=== PATIENT | female | born 1980 | race African-American/Black ===

== ENCOUNTER 2016-04-08 01:49 | Emergency (ER) | payer OTHER ==
[~2016-04-08] VITALS: Ht 152.4 cm; Wt 57.6 kg
--- NOTE | ~2016-04-08 | EKG ---
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
[~2016-04-08 01:49] MED LIST: ALEVE220 MG PO; AMOXICILLIN 50500 MG PO; APAP500 PO; COLACE100 MG PO; ESTRIOL100 GM MC; FLAGYL500 MG PO; FLEXERIL PO; HYDROCODONE-APA1 TA1 PO; IBUPROFEN 600600 M1 PO; IBUPROFEN 800800 MG PO; MIRALAX17 GM PO; NOHOMEMEDICATIONS; NORCO 5-325 TA1 EACH PO; PHENERGAN 25 MG25 M1 PO; ZOFRAN ODT4 MG PO; ZOFRAN ODT4 MG SUBLING
[2016-04-08 02:44] LABS: URINE BILIRUBIN NEGATIVE (Negative); URINE BLOOD NEGATIVE (Negative); URINE COLOR YELLOW; URINE GLUCOSE-RANDOM* NEGATIVE (Negative); URINE KETONES NEGATIVE (Negative); URINE LEUKOCYTES-REFLEX NEGATIVE (Negative); URINE PROTEIN (DIPSTICK) NEGATIVE (Negative); URINE UROBILINOGEN 0.2 E.U./dl (0.2-1.0)
[2016-04-08 02:48] LABS: BASOPHILS 0.8 % (0.0-2.0); EOSINOPHILS 0.2 % (0.0-3.0); HEMATOCRIT 41.1 % (37.0-47.0); HEMOGLOBIN 13.6 gm/dL (12.0-15.0); LYMPHOCYTES 17.7 % (24.0-44.0); MCH 26.4 pg (26.0-34.0); MONOCYTES 3.5 % (1.0-8.0); PLATELET COUNT 161 thou/uL (150-400); POLYS 77.8 % (36.0-66.0); RBC 5.14 mil/uL (4.20-5.00); RDW 18.2 % (10.5-14.5); WBC 6.4 thou/uL (4.0-11.0)
[2016-04-08 02:49] LABS: MANUAL DIFF NO
[2016-04-08 03:26] LABS: ANION GAP 11 mmol/L (7-16); BUN 11 mg/dL (7-18); CALCIUM 9.2 mg/dL (8.5-10.1); CHLORIDE 101 mmol/L (98-107); CO2 25 mmol/L (21-32); CREATININE 0.7 mg/dL (0.6-1.3); GLUCOSE 118 mg/dL (70-99); POTASSIUM 3.9 mmol/L (3.5-5.1); SODIUM 137 mmol/L (136-145)
[2016-04-08 03:33] LABS: ALKALINE PHOSPHATASE 76 U/L (46-116); SGOT 14 U/L (15-37); SGPT 22 U/L (30-65); TOTAL BILIRUBIN 0.7 mg/dL (<0.1-1.0)
[2016-04-08 03:34] LABS: ALBUMIN 4.3 g/dL (3.4-5.0); TOTAL PROTEIN 8.2 g/dL (6.4-8.2); TROPONIN-I < 0.04 ng/mL (<0.04-0.07)
[2016-04-08] MEDS ORDERED: ZOFRAN ODT8 MG PO (05:07)
[2016-04-08] MEDS ORDERED: TRAMADOL 50 MG50 MG PO (05:07)
[2016-04-08 05:35] VITALS: BP 138/76
== END 2016-04-08 05:35 | disposition home or self-care (01) ==
LOC: ER 01:49
PROVIDERS: Emergency Medicine
DX: K52.89 Other specified noninfective gastroenteritis and colitis (principal); Z88.6 Allergy status to analgesic agent; Z88.3 Allergy status to other anti-infective agents; F12.10 Cannabis abuse, uncomplicated

== ENCOUNTER 2017-01-15 08:32 | Emergency (ER) | payer OTHER ==
[~2017-01-15] VITALS: Ht 149.9 cm; Wt 57.6 kg
[~2017-01-15 08:32] MED LIST changes: +TRAMADOL 50 MG50 MG PO; +ZOFRAN ODT8 MG PO
[2017-01-15] MEDS ORDERED: ESTRADIOL 1 MG T1 M1 PO (09:00)
[2017-01-15] MEDS ORDERED: PHENERGAN 25 MG25 M1 PO (09:00)
[2017-01-15] MEDS ORDERED: ESTRACE0.5 MG PO (09:00)
[2017-01-15 09:08] LABS: URINE BILIRUBIN 1+ (Negative); URINE BLOOD TRACE (Negative); URINE COLOR YELLOW; URINE GLUCOSE-RANDOM* NEGATIVE (Negative); URINE KETONES 2+ (Negative); URINE LEUKOCYTES-REFLEX NEGATIVE (Negative); URINE PROTEIN (DIPSTICK) 1+ (Negative); URINE SPECIFIC GRAVITY >= 1.030 (1.003-1.035)
[2017-01-15 09:17] LABS: ABSOLUTE NEUTROPHILS 2.1 thou/uL (1.4-8.2); EOSINOPHILS 0.8 % (0.0-3.0); HEMOGLOBIN 15.4 gm/dL (12.0-15.0); LYMPHOCYTES 34.8 % (24.0-44.0); MCH 29.6 pg (26.0-34.0); MCHC 33.4 g/dL (28.0-37.0); MCV 88.5 fL (80.0-100.0); MONOCYTES 7.3 % (1.0-8.0); PLATELET COUNT 161 thou/uL (150-400); POLYS 56.1 % (36.0-66.0); WBC 3.8 thou/uL (4.0-11.0)
[2017-01-15 09:19] LABS: MANUAL DIFF NO
[2017-01-15 09:28] LABS: ICTOTEST (BILI CONFIRMATORY) Negative (Negative)
[2017-01-15 09:29] LABS: CASTS None Seen /LPF (None Seen); CRYSTALS None Seen /LPF (None Seen); SQUAMOUS 4-10 Moderate /LPF (0-3); URINE RBC 0-2 Rare /HPF (0-2)
[2017-01-15 09:30] LABS: URINE WBC-REFLEX None Seen /HPF (0-5)
[2017-01-15 09:30] LABS: CREATININE 0.9 mg/dL (0.6-1.0); POTASSIUM 3.4 mmol/L (3.5-5.1)
[2017-01-15 09:35] LABS: ALBUMIN 4.9 g/dL (3.4-5.0); TOTAL BILIRUBIN 1.8 mg/dL (<0.1-1.0); TOTAL PROTEIN 8.5 g/dL (6.4-8.2)
[2017-01-15] MEDS ORDERED: PEPCID20 MG PO (10:49)
[2017-01-15] MEDS ORDERED: PHENERGAN12.5 M2 RECTAL (10:49)
[2017-01-15 10:54] VITALS: BP 116/64
[2017-01-16] MEDS ORDERED: PEPCID20 MG PO (16:46)
[2017-01-16] MEDS ORDERED: ZOFRAN ODT4 MG PO (16:46)
== END 2017-01-15 11:04 | disposition home or self-care (01) ==
LOC: ER 08:32
PROVIDERS: Physician Assistant
DX: R10.32 Left lower quadrant pain (principal); Z98.890 Other specified postprocedural states; Z88.6 Allergy status to analgesic agent; Z88.2 Allergy status to sulfonamides

== ENCOUNTER 2018-08-26 09:05 | Emergency (ER) | payer OTHER ==
[~2018-08-26] VITALS: Ht 149.9 cm; Wt 54.4 kg
[~2018-08-26 09:05] MED LIST changes: +ESTRACE0.5 MG PO; +ESTRADIOL 1 MG T1 M1 PO; +PEPCID20 MG PO; +PHENERGAN12.5 M2 RECTAL
[2018-08-26 10:49] LABS: HEMATOCRIT 44.3 % (37.0-47.0); HEMOGLOBIN 15.1 gm/dL (12.0-15.0); MCH 29.5 pg (26.0-34.0); MCHC 34.1 g/dL (28.0-37.0); MCV 86.5 fL (80.0-100.0); PLATELET COUNT 164 thou/uL (150-400); RBC 5.12 mil/uL (4.20-5.00); RDW 12.7 % (10.5-14.5); WBC 2.9 thou/uL (4.0-11.0)
[2018-08-26 11:01] LABS: ANION GAP 11 mmol/L (7-16); BUN 12 mg/dL (7-18); CALCIUM 9.3 mg/dL (8.5-10.1); CHLORIDE 100 mmol/L (98-107); CO2 26 mmol/L (21-32); CREATININE 0.7 mg/dL (0.6-1.0); GLUCOSE 102 mg/dL (74-106); POTASSIUM 4.4 mmol/L (3.5-5.1)
[2018-08-26 11:04] LABS: SODIUM 137 mmol/L (136-145)
[2018-08-26 11:11] LABS: ALBUMIN 4.2 g/dL (3.4-5.0); SGOT 28 U/L (15-37); SGPT 29 U/L (30-65); TOTAL BILIRUBIN 1.2 mg/dL (<0.1-1.0); TOTAL PROTEIN 8.1 g/dL (6.4-8.2); TROPONIN-I <0.06 ng/mL (<0.06)
[2018-08-26] MEDS ORDERED: VENTOLIN HFA 1818 GM INH (11:20)
[2018-08-26] MEDS ORDERED: TRAMADOL 50 MG50 MG PO (11:20)
[2018-08-26] MEDS ORDERED: PREDNISONE 20 M20 MG PO (11:20)
[2018-08-26 11:24] LABS: ABSOLUTE NEUTROPHILS 1.2 thou/uL (1.4-8.2); PLATELET ESTIMATE NORMAL
[2018-08-26 11:32] VITALS: BP 131/95
--- NOTE | 2018-08-26 17:25 | EKG ---
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1980 Requested By: Hans Richard Order Number: [id number] MD: Stevenson Yusuf Measurements Intervals [place] Rate: 66 P: 70 CT: 140 QRS: 69 QRSD: 84 T: 48 QT: 399 QTc: 418 Interpretive Statements Sinus rhythm Baseline wander in lead(s) III,aVF Compared to ECG 04/08/2016 02:36:04 No significant changes Electronically Signed On 08-26-2018 17:25:40 CDT by Stevenson Yusuf [email or web address] ��������������������������������������������� <ELECTRONICALLY SIGNED> ���������������������������������������� By: Stevenson Yusuf MD, [facility] ��������������������������������������������� 08/26/18 1725 D: [id number] Stevenson Yusuf MD, FACC /EPI
== END 2018-08-26 11:23 | disposition home or self-care (01) ==
LOC: ER 09:05
PROVIDERS: Emergency Medicine
DX: R07.89 Other chest pain (principal); I10 Essential (primary) hypertension; D72.819 Decreased white blood cell count, unspecified; R06.00 Dyspnea, unspecified; Z90.710 Acquired absence of both cervix and uterus; Z87.01 Personal history of pneumonia (recurrent); Z98.51 Tubal ligation status; Z88.6 Allergy status to analgesic agent